=== PATIENT | male | born 1990 | race African-American/Black ===

== ENCOUNTER 2020-04-24 12:13 | Emergency (ER) | payer SELFPAY ==
[~2020-04-24] VITALS: Ht 180.3 cm; Wt 98.5 kg
[2020-04-24 12:20] VITALS: BP 138/77
[2020-04-24] MEDS ORDERED: SULF1TAB24 PO (14:08)
[2020-04-24] MEDS ORDERED: MUPI22OI2 TP (14:08)
--- NOTE | 2020-04-24 14:09 | PHYS DOC ---
Past Medical History Past Medical History: No Pertinent History, Anxiety, Depression Past Surgical History: No Surgical History Smoking Status: Current Every Day Smoker Additional Information: 09/30 ppd Alcohol Use: None Drug Use: None General Adult EDM: Chief Complaint: SKIN PROBLEM HPI: HPI: Patient is a 30 year old male who presents with complaints of a boil on his chin that he noticed last night before he went to bed awakened this morning noticing that it was a lot larger. Patient denies any drainage coming from this boil. Patient denies having problems with boils in the past. Patient denies any fever chills, denies any exposure to the COVID virus, denies concerns of the COVID virus and does not wish to be tested for the COVID-19 virus today. Patient denies any nasal congestion, cough, shortness of breath, chest pain, abdominal pain, nausea, vomiting, diarrhea. Patient denies any back pain or pain in his joints. Patient denies any skin rashes, headaches, focal weaknesses, or sensation changes. Patient denies any swelling of his glands. Patient denies any recent life changes depressions anxieties suicidal or homicidal ideation. Review of Systems: Review of Systems: Constitutional: Denies fever or chills. Eyes: Denies change in visual acuity. HENT: Denies nasal congestion or sore throat. Respiratory: Denies cough or shortness of breath. Cardiovascular: Denies chest pain or edema. GI: Denies abdominal pain, nausea, vomiting, diarrhea. : Denies dysuria. Musculoskeletal: Denies back pain or joint pain. Integument: Denies rash. Neurologic: Denies headache, focal weakness or sensory changes. Lymphatic: Denies swollen glands. Psychiatric: Denies depression or anxiety. Heart Score: Risk Factors: Risk Factors: DM, Current or recent (<one month) smoker, HTN, HLP, family history of CAD, obesity. Risk Scores: Score 0 - 3: 2.5% MACE over next 6 weeks - Discharge Home Score 4 - 6: 20.3% MACE over next 6 weeks - Admit for Clinical Observation Score 7 - 10: 72.7% MACE over next 6 weeks - Early Invasive Strategies Allergies: Allergies: Allergies Coded Allergies Type Severity Reaction Last Updated Verified No Known Drug Allergies 04/24/20 No Physical Exam: PE: Constitutional: Well developed, well nourished, no acute distress, non-toxic appearance. HENT: Normocephalic, atraumatic, bilateral external ears normal, oropharynx moist, no oral exudates, nose normal. Eyes: PERRLA, EOMI, conjunctiva normal, no discharge. Neck: Normal range of motion, no tenderness, supple, no stridor. Cardiovascular:Heart rate regular rhythm, no murmur Lungs & Thorax: Bilateral breath sounds clear to auscultation Abdomen: Bowel sounds normal, soft, no tenderness, no masses, no pulsatile masses. Skin: Warm, dry, no erythema, no rash. Boil to chin center just under apex measures approximately 2.5 cm in diameter without drainage, has a central punctum. Back: No tenderness, no CVA tenderness. Extremities: No tenderness, no cyanosis, no clubbing, ROM intact, no edema. Neurologic: Alert and oriented X 3, normal motor function, normal sensory function, no focal deficits noted. Psychologic: Affect normal, judgement normal, mood normal. Current Patient Data: Vital Signs: Vital Signs Date Time Temp Pulse Resp B/P (MAP) Pulse Ox O2 Delivery O2 Flow Rate FiO2 04/24/20 12:20 99.1 75 16 138/77 (97) 98 Room Air 99.1 EKG: EKG: [] Radiology/Procedures: Radiology/Procedures: [] Course & Med Decision Making: Course & Med Decision Making Pertinent Labs and Imaging studies reviewed. (See chart for details) 30-year-old male presents emergency department complaint of boil on his chin. Examination revealed a 1.5 cm abscess to the center of his chin containing a central punctum without drainage. No cellulitis noted not concerning for systemic infectious process. Explained to patient physical findings, boil was lanced with 18-gauge needle after a cleansing of Betadine solution. Expelled approximately 2 to 3 cc of purulent drainage. Patient tolerated procedure well without anesthetization. Patient was started on p.o. Bactrim DS first dose in emergency department. Patient was given verbal discharge instructions and instructions for antibiotic use. Patient gave verbal understanding of these instructions, had no further questions or concerns. Patient discharged home. Dragon Disclaimer: Dragscott Disclaimer: This electronic medical record was generated, in whole or in part, using a voice recognition dictation system. Departure Departure Impression: Primary Impression: Abscess Additional Impression: Acute folliculitis Disposition: 01 HOME, SELF-CARE Condition: GOOD Referrals: NO PCP (PCP) Patient Instructions: Abscess, Folliculitis Additional Instructions: Take antibiotic medication as prescribed, return to emergency department for worsening symptoms or further concerns, see your doctor soon. Scripts Mupirocin (MUPIROCIN OINTMENT) 22 Gm Oint...g. 1 ROBERTO TP TID for WOUND CARE, #1 TUBE 0 Refills Apply to boil site on coe 3 times a day Prov: HILL JOHNSON APRN 04/24/20 Sulfamethoxazole/Trimethoprim (BACTRIM DS TABLET) 1 Each Tablet 1 TAB PO BID for 7 Days, #14 TAB 0 Refills Prov: HILL JOHNSON APRN 04/24/20 Justicifation of Admission Dx: Justifications for Admission: Justification of Admission Dx: N/A HILL JOHNSON APRN Apr 24, 2020 14:09
[2020-04-24] MEDS ORDERED: SMZ/TMP 800/160MG TABLET. PO ONE (14:15)
== END 2020-04-24 14:30 | disposition home or self-care (01) ==
LOC: ER 12:13
DX: L02.01 Cutaneous abscess of face (principal); L73.9 Follicular disorder, unspecified; F41.9 Anxiety disorder, unspecified; F32.9 Major depressive disorder, single episode, unspecified; F17.200 Nicotine dependence, unspecified, uncomplicated
CPT/HCPCS: 10060; 99283

== ENCOUNTER 2020-08-14 17:29 | Emergency (ER) | payer SELFPAY ==
[~2020-08-14] VITALS: Ht 180.3 cm; Wt 97.5 kg
[~2020-08-14 17:29] MED LIST: MUPI22OI2 TP; SULF1TAB24 PO
[2020-08-14 18:48] VITALS: BP 137/62
[2020-08-14] MEDS ORDERED: LIDOCAINE 1% Multi-Dose 20 ML VIAL. INJ ONE (19:30)
[2020-08-14] MEDS ORDERED: CEPH-264 PO (19:35)
--- NOTE | 2020-08-14 19:35 | PHYS DOC ---
Past Medical History Past Medical History: No Pertinent History, Anxiety, Depression Past Surgical History: No Surgical History Smoking Status: Current Every Day Smoker Additional Information: /2 ppd Alcohol Use: Occasionally Drug Use: None General Adult EDM: Chief Complaint: ABSCESS HPI: HPI: Patient is a 30 year old male who presents with a quarter sized, soft fluctuant, reddened, lump on the left cheek that he states has been there for 2 years. It is tender. Patient has a history of anxiety, depression and smokes 1/2 pack a day. Patient denies fever, headache, vision changes, numbness, tingling, chest pain, shortness of breath, dizziness. Patient rates his pain aching discomfort at a 7 out of 10 Review of Systems: Review of Systems: Constitutional: Denies fever or chills. [] Eyes: Denies change in visual acuity. [] HENT: Denies nasal congestion or sore throat. [] Respiratory: Denies cough or shortness of breath. [] Cardiovascular: Denies chest pain or edema. [] GI: Denies abdominal pain, nausea, vomiting, bloody stools or diarrhea. [] : Denies dysuria. [] Musculoskeletal: Denies back pain or joint pain. [] Integument: Denies rash. [] Neurologic: Denies headache, focal weakness or sensory changes. [] Endocrine: Denies polyuria or polydipsia. [] Lymphatic: Denies swollen glands. [] Psychiatric: Denies depression or anxiety. [] Heart Score: Risk Factors: Risk Factors: DM, Current or recent (<one month) smoker, HTN, HLP, family history of CAD, obesity. Risk Scores: Score 0 - 3: 2.5% MACE over next 6 weeks - Discharge Home Score 4 - 6: 20.3% MACE over next 6 weeks - Admit for Clinical Observation Score 7 - 10: 72.7% MACE over next 6 weeks - Early Invasive Strategies Allergies: Allergies: Allergies Coded Allergies Type Severity Reaction Last Updated Verified No Known Drug Allergies 08/14/20 No Physical Exam: PE: Constitutional: Well developed, well nourished, no acute distress, non-toxic appearance. [] HENT: Normocephalic, atraumatic, bilateral external ears normal, oropharynx moist, no oral exudates, nose normal. [] Eyes: PERRLA, EOMI, conjunctiva normal, no discharge. [] Neck: Normal range of motion, no tenderness, supple, no stridor. [] Cardiovascular:Heart rate regular rhythm, no murmur [] Lungs & Thorax: Bilateral breath sounds clear to auscultation [] Abdomen: Bowel sounds normal, soft, no tenderness, no masses, no pulsatile masses. [] Skin: Warm, dry, no erythema, no rash. [] Back: No tenderness, no CVA tenderness. [] Extremities: No tenderness, no cyanosis, no clubbing, ROM intact, no edema. [] Neurologic: Alert and oriented X 3, normal motor function, normal sensory f unction, no focal deficits noted. [] Psychologic: Affect normal, judgement normal, mood normal. [] Current Patient Data: Vital Signs: Vital Signs Date Time Temp Pulse Resp B/P (MAP) Pulse Ox O2 Delivery O2 Flow Rate FiO2 08/14/20 18:48 97.9 75 16 137/62 (87) 99 Room Air 97.9 EKG: EKG: [] Radiology/Procedures: Radiology/Procedures: [] Course & Med Decision Making: Course & Med Decision Making Pertinent Labs and Imaging studies reviewed. (See chart for details) See HPI. Alert and oriented x4. Speaks in full clear sentences. No cellulitis is seen. Patient will be placed on antibiotic. Ambulatory with a steady gait. PERRLA. I&D Location: Left cheek quarter sized, reddened fluctuant abscess Anesthesia: 1% lidocaine Scalpel size: 20-gauge needle Skin: Reddened and tender over abscess area Drainage: Moderate amount white creamy drainage, odorous Packing: None Patient tolerated the procedure well with no complications. The area was prepped and draped in usual sterile fashion. Area was cleaned with chloehexidine prior to procedure. Return for signs and symptoms of infection education given. Patient to return in 48 hours for wound recheck. [] Bri Disclaimer: Bri Disclaimer: This electronic medical record was generated, in whole or in part, using a voice recognition dictation system. Departure Departure Impression: Primary Impression: Abscess Disposition: 01 DC HOME SELF CARE/HOMELESS Condition: STABLE Referrals: NO PCP (PCP) Patient Instructions: Abscess, Care After Additional Instructions: Return in 48 hours for a wound recheck. Take antibiotic as prescribed and with food. Take ibuprofen for your pain. Scripts Cephalexin (KEFLEX) 500 Mg Capsule 1 CAP PO TID for 10 Days, #30 CAP 0 Refills Prov: DARVIN STROUD APRN 08/14/20 DARVIN STROUD APRN Aug 14, 2020 19:35
== END 2020-08-14 20:20 | disposition home or self-care (01) ==
LOC: ER 17:29
DX: L02.01 Cutaneous abscess of face (principal); F41.9 Anxiety disorder, unspecified; F32.9 Major depressive disorder, single episode, unspecified; F17.200 Nicotine dependence, unspecified, uncomplicated
CPT/HCPCS: 10060; 99283; J3490

== ENCOUNTER 2020-11-27 10:26 | Emergency (ER) | payer SELFPAY ==
[~2020-11-27] VITALS: Ht 180.3 cm; Wt 100.0 kg
[~2020-11-27 10:26] MED LIST changes: +CEPH-264 PO
[2020-11-27] MEDS ORDERED: MORPHINE SULFATE 10 MG/ML VIAL. IV ONE ×2 (10:45→12:30)
--- NOTE | 2020-11-27 11:15 | RAD ---
Exam Date: 11/27/2020 10:35 AM XR HUMERUS_LT 2 VIEWS, XR FOREARM_LEFT 2 VIEWS, XR ELBOW COMPLETE_LEFT 3+VIEWS Indication: Reason: FELL OFF LADDER, PAIN FROM LEFT WRIST TO LEFT ELBOW / Spl. Instructions: / Histo ry: FINDINGS/ IMPRESSION: There is a minimally displaced radial head fracture with extension to the radial neck. There is a mil dly displaced acute fracture of the coronoid process of the proximal ulna. An elbow joint effusion i s noted. Joint spaces are maintained. There is a nondisplaced acute fracture of the volar aspect of the distal radius, likely involving the radial styloid. Joint spaces are maintained. Soft tissue swelling is noted. The humerus is intact. Electronically signed by: Sebastian Guajardo MD (11/27/2020 11:12 AM) [id number]
--- NOTE | 2020-11-27 12:22 | ED.ADGEN ---
Past Medical History Past Medical History: No Pertinent History, Anxiety, Depression Past Surgical History: No Surgical History Smoking Status: Current Every Day Smoker Alcohol Use: Occasionally Drug Use: None General Adult EDM: Chief Complaint: TRAUMA ALERT HPI: HPI: Patient is a 30-year-old previously healthy male who presents to the emergency room after falling off of a ladder. Patient states that he is trying to cut down a tree when when the ladder sunk into the mud and fell out from under him. He had sudden onset severe left forearm pain. He states that he cannot move it secondary to pain. He denies any numbness or weakness in his hand. He denies any other trauma. Did not lose consciousness or hit his head. Review of Systems: Review of Systems: Complete ROS is negative unless otherwise documented in HPI Current Medications: Current Medications Medications (Trade) Dose Ordered Sig/Shimon Start Time Stop Time Status Last Admin Dose Admin Morphine Sulfate (Morphine Sulfate) 5 mg 1X ONCE 11/27/20 12:30 11/27/20 12:31 DC 11/27/20 12:22 5 MG Allergies: Allergies: Allergies Coded Allergies Type Severity Reaction Last Updated Verified No Known Drug Allergies 08/14/20 No Physical Exam: PE: General: Awake, alert, NAD. Well Nourished, well hydrated. Cooperative HEENT: Atraumatic, EOMI, PERRL, airway patent, moist oral mucosa, no nasal septal hematoma, no facial crepitus or deformity Neck: Supple, trachea midline, no C-spine tenderness Respiratory: CTA bilaterally, normal effort, no wheezing/crackles, no crepitus CV: RRR, no murmur, cap refill <2, 2+ bilateral radial/DP pulses GI: Soft, nondistended, nontender, no masses MSK: Left forearm: Swelling to left forearm and elbow joint, tenderness to the wrist and elbow, intact range of motion in hand though slow, intact sensation, pelvis stable and nontender Skin: Warm, dry Neuro: A&O x3, speech NL, sensory and motor grossly intact, no focal deficits Psych: Normal affect, normal mood, not suicidal or homicidal Current Patient Data: Vital Signs: Vital Signs Date Time Temp Pulse Resp B/P (MAP) Pulse Ox O2 Delivery O2 Flow Rate FiO2 11/27/20 12:22 18 100 Room Air 11/27/20 11:25 78 141/66 (91) 11/27/20 10:33 98.1 98.1 EKG: EKG: [] Heart Score: Risk Factors: Risk Factors: DM, Current or recent (<one month) smoker, HTN, HLP, family history of CAD, obesity. Risk Scores: Score 0 - 3: 2.5% MACE over next 6 weeks - Discharge Home Score 4 - 6: 20.3% MACE over next 6 weeks - Admit for Clinical Observation Score 7 - 10: 72.7% MACE over next 6 weeks - Early Invasive Strategies Radiology/Procedures: Radiology/Procedures: [] Course & Med Decision Making: Course & Med Decision Making Pertinent Labs and Imaging studies reviewed. (See chart for details) Patient is a 30-year-old male who presents to the emergency room after falling off of a ladder. Patient only has a left forearm pain and injury. No signs of trauma to the head or neck. No back pain. Patient was ambulatory upon arrival. He does have obvious swelling and pain in the arm. Patient was given morphine and x-rays were done. Patient has multiple forearm fractures. I have discussed the case with Dr. Desir the on-call orthopedic surgeon who recommends doing a double sugar tong and having the patient follow-up in clinic. Patient had intact sensation in the hand and normal capillary refill after splint placement patient's test results and vitals while in the ED were fully reviewed and discussed with the patient. Patient is stable and at this time does not need admission to the hospital. We have discussed strict return precautions and the importance of following up with their Primary Care Physician. Patient stated understanding and was given an opportunity to ask any questions. Patient is in agreement with plan. Bri Disclaimer: Bri Disclaimer: This electronic medical record was generated, in whole or in part, using a voice recognition dictation system. Departure Departure Impression: Primary Impression: Radial head fracture, closed Additional Impressions: Fracture, ulna, distal Distal radial fracture Disposition: 01 DC HOME SELF CARE/HOMELESS Condition: STABLE Referrals: NO PCP (PCP) Patient Instructions: Cast or Splint Care, Forearm Fracture Scripts Oxycodone/Apap 5-325 (PERCOCET 5-325 MG TABLET ) 1 Each Tablet 1 TAB PO PRN Q6HRS PRN for PAIN, #15 TAB 0 Refills Prov: MANFRED LARA MD 11/27/20 Problem Qualifiers MANFRED LARA MD Nov 27, 2020 12:22
[2020-11-27 12:40] VITALS: BP 158/89
[2020-11-27] MEDS ORDERED: OXYC1TAB15 PO (12:49)
== END 2020-11-27 12:58 | disposition home or self-care (01) ==
LOC: ER 10:26
DX: S52.122A Displaced fracture of head of left radius, initial encounter for closed fracture (principal); S52.592A Other fractures of lower end of left radius, initial encounter for closed fracture; M25.522 Pain in left elbow; M79.632 Pain in left forearm; F41.9 Anxiety disorder, unspecified; F32.9 Major depressive disorder, single episode, unspecified; F17.200 Nicotine dependence, unspecified, uncomplicated; W11.XXXA Fall on and from ladder, initial encounter; Y93.89 Activity, other specified; Y92.89 Other specified places as the place of occurrence of the external cause; Y99.8 Other external cause status
CPT/HCPCS: 29125; 73060; 73080; 73090; 96374; 96376; 99285; J2270

== ENCOUNTER 2020-11-28 07:15 | Emergency (ER) | payer SELFPAY ==
[~2020-11-28] VITALS: Ht 182.9 cm; Wt 90.0 kg
[2020-11-28 07:15] VITALS: BP 150/72
[~2020-11-28 07:15] MED LIST changes: +OXYC1TAB15 PO
--- NOTE | 2020-11-28 07:39 | PHYS DOC ---
Past Medical History Past Medical History: No Pertinent History, Anxiety, Depression Past Surgical History: No Surgical History Smoking Status: Current Every Day Smoker Alcohol Use: Occasionally Drug Use: None General Adult EDM: Chief Complaint: UPPER EXTREMITY PAIN HPI: HPI: Patient is a 30 year old male who presented to ER today for evaluation of left elbow, left forearm pain. Patient fell off a ladder yesterday, he was evaluated here in the ER. Patient was found to have left radial head fracture and left distal radius fracture, left olecranon process fracture. Patient was consulted by orthopedic on the phone, recommended double sugar tong splint, discharged home, follow-up in the clinic. Patient was discharged home, prescribed Percocet for pain control. Patient came back today because of increased pain. Patient denies any numbness in the fingers his injury extremity. Review of Systems: Review of Systems: Constitutional: Denies fever or chills. [] Eyes: Denies change in visual acuity. [] HENT: Denies nasal congestion or sore throat. [] Respiratory: Denies cough or shortness of breath. [] Cardiovascular: Denies chest pain or edema. [] GI: Denies abdominal pain, nausea, vomiting, bloody stools or diarrhea. [] : Denies dysuria. [] Musculoskeletal: Positive for left elbow pain, left forearm pain. Integument: Denies rash. [] Neurologic: Denies headache, focal weakness or sensory changes. [] Endocrine: Denies polyuria or polydipsia. [] Lymphatic: Denies swollen glands. [] Psychiatric: Denies depression or anxiety. [] Heart Score: Risk Factors: Risk Factors: DM, Current or recent (<one month) smoker, HTN, HLP, family history of CAD, obesity. Risk Scores: Score 0 - 3: 2.5% MACE over next 6 weeks - Discharge Home Score 4 - 6: 20.3% MACE over next 6 weeks - Admit for Clinical Observation Score 7 - 10: 72.7% MACE over next 6 weeks - Early Invasive Strategies Current Medications: Current Medications Medications (Trade) Dose Ordered Sig/Shimon Start Time Stop Time Status Last Admin Dose Admin Morphine Sulfate (Morphine Sulfate) 4 mg 1X ONCE 11/28/20 07:45 11/28/20 07:46 11/28/20 07:35 4 MG Allergies: Allergies: Allergies Coded Allergies Type Severity Reaction Last Updated Verified No Known Drug Allergies 08/14/20 No Physical Exam: PE: Constitutional: Well developed, well nourished, no acute distress, non-toxic appearance. [] HENT: Normocephalic, atraumatic, bilateral external ears normal, oropharynx moist, no oral exudates, nose normal. [] Eyes: PERRLA, EOMI, conjunctiva normal, no discharge. [] Neck: Normal range of motion, no tenderness, supple, no stridor. [] Cardiovascular:Heart rate regular rhythm, no murmur [] Lungs & Thorax: Bilateral breath sounds clear to auscultation [] Abdomen: Bowel sounds normal, soft, no tenderness, no masses, no pulsatile masses. [] Skin: Warm, dry, no erythema, no rash. [] Back: No tenderness, no CVA tenderness. [] Extremities: Left upper extremity in a double sugar tong splint, patient can move all his left fingers without any problem, good capillary refill of the fingers on the left side. Neurologic: Alert and oriented X 3, normal motor function, normal sensory function, no focal deficits noted. [] Psychologic: Affect normal, judgement normal, mood normal. [] Current Patient Data: Vital Signs: Vital Signs Date Time Temp Pulse Resp B/P (MAP) Pulse Ox O2 Delivery O2 Flow Rate FiO2 11/28/20 07:35 18 99 Room Air EKG: EKG: [] Radiology/Procedures: Radiology/Procedures: The existing splint was removed. There is no evidence of compartment syndrome, patient can move all fingers, no numbness of fingers. A new orthoglass material double sugar tong splint was applied to left upper extremity by this physician. Patient tolerated it well. Post-splinting exam: good capillary refill, patient can move all fingers of left hands without any problem. Patient will be discharged home. He will need to follow up with orthopedic surgeon for outpatient evaluation and treatment. Course & Med Decision Making: Course & Med Decision Making Pertinent Labs and Imaging studies reviewed. (See chart for details) [] Dragon Disclaimer: Dragon Disclaimer: This electronic medical record was generated, in whole or in part, using a voice recognition dictation system. Departure Departure Impression: Primary Impression: Closed fracture of left distal radius Additional Impression: Closed fracture of head of left radius Disposition: 01 DC HOME SELF CARE/HOMELESS Referrals: NO PCP (PCP) MOLINA,JOSHUA MD Please call this orthopedic surgeon today for follow up this week. Patient Instructions: Radial Fracture, Radial Head Fracture Additional Instructions: Thank you for visiting our Emergency Department. We appreciate you trusting us with your care. If any additional problems come up don't hesitate to return to visit us. Please follow up with your primary care provider so they can plan additional care if needed and know about the problem that you had. If symptoms worsen come back to the Emergency Department. Any concerning symptoms that start such as chest pain, shortness of air, weakness or numbness on one side of the body, running high fevers or any other concerning symptoms return to the ER. YANN FELIX DO Nov 28, 2020 07:39
[2020-11-28] MEDS ORDERED: MORPHINE SULFATE 4 MG/ML VIAL. IM ONE (07:45)
== END 2020-11-28 08:26 | disposition home or self-care (01) ==
LOC: ER 07:15
DX: S52.592A Other fractures of lower end of left radius, initial encounter for closed fracture (principal); M25.522 Pain in left elbow; F41.9 Anxiety disorder, unspecified; F32.9 Major depressive disorder, single episode, unspecified; F17.200 Nicotine dependence, unspecified, uncomplicated; W11.XXXA Fall on and from ladder, initial encounter; Y93.89 Activity, other specified; Y92.89 Other specified places as the place of occurrence of the external cause; Y99.8 Other external cause status
CPT/HCPCS: 96372; 99283; J2270

== ENCOUNTER 2021-03-18 22:07 | Emergency (ER) | payer SELFPAY ==
[~2021-03-18] VITALS: Ht 180.3 cm; Wt 97.7 kg
[2021-03-18 22:34] LABS: BASO # 0.1 x10^3/uL (0.0-0.2); BASO % 1 % (0-3); EOS # 0.1 x10^3/uL (0.0-0.7); EOS % 1 % (0-3); HEMATOCRIT 38.4 % (39.0-53.0); HEMOGLOBIN 13.5 g/dL (13.0-17.5); LYMPH # 2.6 x10^3/uL (1.0-4.8); LYMPH % 23 % (24-48); MEAN CORPUSCULAR HEMOGLOBIN 33 pg (25-35); MEAN CORPUSCULAR HGB CONC 35 g/dL (31-37); MEAN CORPUSCULAR VOLUME 93 fL (79-100); MONO # 0.7 x10^3/uL (0.0-1.1); MONO % 6 % (0-9); NEUT # 7.8 x10^3/uL (1.8-7.7); NEUT % 69 % (31-73); PLATELET COUNT 329 x10^3/uL (140-400); RED BLOOD COUNT 4.11 x10^6/uL (4.30-5.70); RED CELL DISTRIBUTION WIDTH 13.2 % (11.5-14.5); WHITE BLOOD COUNT 11.3 x10^3/uL (4.0-11.0)
[2021-03-18 22:46] LABS: CALCIUM 8.7 mg/dL (8.5-10.1); CREATININE 1.1 mg/dL (0.7-1.3); GFR 93.9; POTASSIUM 3.3 mmol/L (3.5-5.1)
[2021-03-18 22:52] LABS: ALBUMIN 3.8 g/dL (3.4-5.0); ALBUMIN/GLOBULIN RATIO 1.2 (1.0-1.7); TOTAL BILIRUBIN 0.7 mg/dL (0.2-1.0); TOTAL PROTEIN 6.9 g/dL (6.4-8.2)
[2021-03-18] MEDS ORDERED: IV NORMAL SALINE 1000ML BAG 1,000 ML IV ONE (23:00)
--- NOTE | 2021-03-18 23:18 | PHYS DOC ---
Past Medical History Past Medical History: No Pertinent History, Anxiety, Depression Past Surgical History: No Surgical History Smoking Status: Current Every Day Smoker Alcohol Use: Occasionally Drug Use: None General Adult EDM: Chief Complaint: OVERDOSE HPI: HPI: Patient is a 31 year old male presents for evaluation of overdose. Patient admits to smoking fentanyl. Prior to arrival 911 was called EMS found the patient unresponsive. EMS treated patient with Narcan 0.4 mg IV push. On arrival patient is alert and oriented x4. He has no complaints. Patient states he was smoking fentanyl for recreational purse purposes. He denies any homicidal or suicidal ideation. Review of Systems: Review of Systems: Review of systems: Constitutional symptoms- No fever, no chills. Eyes- No Discharge, No Visual Loss Respiratory symptoms- No shortness of breath, No wheezing, No Dyspnea on Exertion Cardiovascular Systems; No chest pain, No Palpitations, No syncope Gastrointestinal symptoms: NO abdominal pain, no nausea, no vomiting or diarrhea. Genitourinary symptoms: No dysuria. Musculoskeletal symptoms: No back pain No extremity pain. NEUROLOGICAL Symptoms: No headache, no generalized weakness; No focal Weakness Skin: No rash. Heart Score: C/O Chest Pain: N/A Risk Factors: Risk Factors: DM, Current or recent (<one month) smoker, HTN, HLP, family history of CAD, obesity. Risk Scores: Score 0 - 3: 2.5% MACE over next 6 weeks - Discharge Home Score 4 - 6: 20.3% MACE over next 6 weeks - Admit for Clinical Observation Score 7 - 10: 72.7% MACE over next 6 weeks - Early Invasive Strategies Current Medications: Current Medications Medications (Trade) Dose Ordered Sig/[facility] Start Time Stop Time Status Last Admin Dose Admin Sodium Chloride 1,000 ml @ 1,000 mls/hr 1X ONCE 03/18/21 23:00 03/18/21 23:59 03/18/21 22:59 1,000 MLS/HR Allergies: Allergies: Allergies Coded Allergies Type Severity Reaction Last Updated Verified No Known Drug Allergies 08/14/20 No Physical Exam: PE: General: alert, no acute distress. Skin: warm, dry and intact. HENT: bilateral external ears normal, oropharynx moist, nose normal. Head:: Normocephalic, atraumatic. Neck: Trachea midline. Eyes: EOMI, Normal conjunctiva, No drainage CARDIOVASCULAR: Regular rate and rhythm RESPIRATORY: No respiratory distress Back: Full range of motion. Skin: Warm, dry, no erythema, no rash. MUSCULOSKELETAL: Full range of motion of bilateral upper and lower extremities. GASTROINTESTINAL: Abdomen soft without rebound or guarding. NEUROLOGICAL: Alert and noted to person, place and time. No neurological deficits observed Psychiatric: Cooperative. Normal judgment Current Patient Data: Labs: Laboratory Tests Test 03/18/21 22:22 White Blood Count 11.3 x10^3/uL (4.0-11.0) H Red Blood Count 4.11 x10^6/uL (4.30-5.70) L Hemoglobin 13.5 g/dL (13.0-17.5) Hematocrit 38.4 % (39.0-53.0) L Mean Corpuscular Volume 93 fL (79-100) Mean Corpuscular Hemoglobin 33 pg (25-35) Mean Corpuscular Hemoglobin Concent 35 g/dL (31-37) Red Cell Distribution Width 13.2 % (11.5-14.5) Platelet Count 329 x10^3/uL (140-400) Neutrophils (%) (Auto) 69 % (31-73) Lymphocytes (%) (Auto) 23 % (24-48) L Monocytes (%) (Auto) 6 % (0-9) Eosinophils (%) (Auto) 1 % (0-3) Basophils (%) (Auto) 1 % (0-3) Neutrophils # (Auto) 7.8 x10^3/uL (1.8-7.7) H Lymphocytes # (Auto) 2.6 x10^3/uL (1.0-4.8) Monocytes # (Auto) 0.7 x10^3/uL (0.0-1.1) Eosinophils # (Auto) 0.1 x10^3/uL (0.0-0.7) Basophils # (Auto) 0.1 x10^3/uL (0.0-0.2) Sodium Level 143 mmol/L (136-145) Potassium Level 3.3 mmol/L (3.5-5.1) L Chloride Level 107 mmol/L (98-107) Carbon Dioxide Level 27 mmol/L (21-32) Anion Gap 9 (6-14) Blood Urea Nitrogen 14 mg/dL (8-26) Creatinine 1.1 mg/dL (0.7-1.3) Estimated GFR (Cockcroft-Gault) 93.9 BUN/Creatinine Ratio 13 (6-20) Glucose Level 111 mg/dL (70-99) H Calcium Level 8.7 mg/dL (8.5-10.1) Total Bilirubin 0.7 mg/dL (0.2-1.0) Aspartate Amino Transferase (AST) 26 U/L (15-37) Alanine Aminotransferase (ALT) 28 U/L (16-63) Alkaline Phosphatase 79 U/L (46-116) Total Protein 6.9 g/dL (6.4-8.2) Albumin 3.8 g/dL (3.4-5.0) Albumin/Globulin Ratio 1.2 (1.0-1.7) Laboratory Tests 03/18/21 22:22 Laboratory Tests 03/18/21 22:22 EKG: EKG: [] Radiology/Procedures: Radiology/Procedures: [] Course & Med Decision Making: Course & Med Decision Making Pertinent Labs and Imaging studies reviewed. (See chart for details) [] Patient was observed. Basic labs drawn no acute abnormalities. Treatment included IV fluids. Patient's vital signs of been stable he is alert and oriented x4 he is tolerated p.o. Patient discharged home. Bri Disclaimer: Bri Disclaimer: This electronic medical record was generated, in whole or in part, using a voice recognition dictation system. Departure Departure Impression: Primary Impression: Accidental overdose Additional Impression: Opiate overdose Disposition: 01 HOME / SELF CARE / HOMELESS Condition: STABLE Referrals: NO PCP (PCP) Patient Instructions: Overdose, Accidental, Overdose, Adult JANET STARR I DO Mar 18, 2021 23:18
[2021-03-18 23:42] VITALS: BP 120/53
== END 2021-03-19 00:10 | disposition home or self-care (01) ==
LOC: EEVIPCON 22:07 → ER 22:07
DX: T40.601A Poisoning by unspecified narcotics, accidental (unintentional), initial encounter (principal); F17.200 Nicotine dependence, unspecified, uncomplicated; F41.9 Anxiety disorder, unspecified; F32.9 Major depressive disorder, single episode, unspecified; Y92.89 Other specified places as the place of occurrence of the external cause
CPT/HCPCS: 36415; 80053; 85025; 96360; 99284; J7030